=== PATIENT | female | born 1940 ===

== ENCOUNTER 2016-11-13 12:45 | Emergency (ER) | payer MEDICARE ==
[2016-11-13 13:06] VITALS: BP 121/54
--- NOTE | 2016-11-13 13:22 | UC ---
Throat Pain/Nasal Shree HPI - HPI Summary HPI Summary: complaint of nasal congestion adn cough that satretd 11 days ago sore throat at beginning of illness coughing so hard that she throws up that started 2-3 days ago productive cough for several days she has been getting more sinus pressure lost her voice approx 1 weeka go denies fever and chills seen by PCP on 11/07/16 tried robitussin taking mucinex - History of Current Complaint Chief Complaint: UCGeneralIllness Stated Complaint: COUGH,LOSS OF VOICE,CHEST CONGESTION Time Seen by Provider: 11/13/16 13:08 Hx Obtained From: Patient - Allergies/Home Medications Allergies/Adverse Reactions: Allergies Allergy/AdvReac Type Severity Reaction Status Date / Time contrast dye Allergy Hives Uncoded 11/13/16 13:09 Home Medications: Home Medications Ascorbic Acid [Vitamin C] 500 mg PO DAILY 11/13/16 [History Confirmed 11/13/16] Aspirin [Aspirin 81 MG TAB] 1 tab PO DAILY 11/13/16 [History Confirmed 11/13/16] Calcium Carbonate-Cholecalcife [Calcium 600+D 600-800 mg-Unit] 1 tab PO DAILY [History Confirmed 11/13/16] Choline Fenofibrate [Fenofibric Acid Dr] 135 mg PO DAILY 11/13/16 [History Confirmed 11/13/16] Citalopram TAB* [Celexa TAB*] 10 mg PO DAILY 11/13/16 [History Confirmed ] Glucosamine Sulfate [Glucosamine] 1,000 mg PO DAILY 11/13/16 [History Confirmed 11/13/16] Simvastatin [Zocor 40 MG (NF)] 40 mg PO QPM 11/13/16 [History Confirmed 11/13/16 ] Triamterene/HCTZ 75-50 MG* [Maxzide 75-50*] 1 tab PO DAILY 11/13/16 [History Confirmed 11/13/16] Valsartan TAB* [Diovan TAB*] 320 mg PO DAILY 11/13/16 [History Confirmed ] PMH/Surg Hx/FS Hx/Imm Hx Previously Healthy: Yes Endocrine History: Dyslipidemia Cardiovascular History: Hypertension - Surgical History Surgical History: None - Family History Known Family History: Negative: Cardiac Disease, Hypertension, Diabetes - Social History Occupation: Employed Full-time Alcohol Use: None Substance Use Type: None Smoking Status (MU): Never Smoked Tobacco Review of Systems Constitutional: Negative Skin: Negative Eyes: Negative ENT: Nasal Discharge, Sinus Congestion, Sinus Pain/Tenderness Respiratory: Cough Cardiovascular: Negative Gastrointestinal: Negative Genitourinary: Negative Motor: Negative Neurovascular: Negative Musculoskeletal: Negative Neurological: Negative Psychological: Negative All Other Systems Reviewed And Are Negative: Yes Physical Exam Triage Information Reviewed: Yes Appearance: No Pain Distress, Well-Nourished Vital Signs: Initial Vital Signs Temp 97.7 F 11/13/16 12:59 Pulse 77 11/13/16 12:59 Resp 16 11/13/16 12:59 BP 121/54 11/13/16 12:59 Pulse Ox 97 11/13/16 12:59 Vital Signs Reviewed: Yes Eyes: Positive: Conjunctiva Clear ENT: Positive: Pharyngeal erythema, Nasal congestion, Nasal drainage, TM bulging , Other: - frontal and maxillary sinus tenderness Neck: Positive: No Lymphadenopathy Respiratory: Positive: Lungs clear, Normal breath sounds, No respiratory distress Cardiovascular: Positive: RRR, No Murmur, Pulses Normal Abdomen Description: Positive: Nontender, Soft Bowel Sounds: Positive: Present Musculoskeletal: Positive: No Edema Neurological: Positive: Alert Psychological Exam: Normal Skin Exam: Normal Throat Pain/Nasal Course/Dx - Course Course Of Treatment: exam completed. will treat for secondary infection in sinuses secondary to URI - Differential Dx/Diagnosis Differential Diagnosis/HQI/PQRI: Pharyngitis, Sinusitis, Tonsillitis, Other - laryngitis Provider Diagnoses: sinusitis, laryngitis Discharge - Discharge Plan Condition: Stable Disposition: HOME Prescriptions: Amoxicillin/Clavulanate TAB* [Augmentin TAB 875*] 875 mg PO BID #20 tab Guaifenesin-Codeine [Cheratussin AC] 10 ml PO Q4HR #240 ml MDD 60 ML Patient Education Materials: Sinusitis (ED) Referrals: PERRI Olivares [Primary Care Provider] - Additional Instructions: Please start antibiotic as directed Increase fluids and rest Take acetaminophen or ibuprofen for fever or pain Please review your discharge instructions. If your symptoms do not improve please call your primary care provider or return to urgent care.
== END 2016-11-13 13:34 | disposition home or self-care (01) ==
LOC: UCCORT 12:45
DX: J32.9 Chronic sinusitis, unspecified (principal); J04.0 Acute laryngitis; I10 Essential (primary) hypertension
CPT/HCPCS: 99202; G0463